=== PATIENT | female | born 1965 | race Hispanic/Latino ===

== ENCOUNTER 2022-07-28 18:49 | Emergency (ER) | payer SELFPAY ==
[~2022-07-28] VITALS: Ht 152.4 cm; Wt 62.5 kg
[2022-07-28] MEDS ORDERED: VENTOLIN HFA IN (21:08)
[2022-07-28] MEDS ORDERED: SINGULAIR10 MG PO (21:08)
[2022-07-28] MEDS ORDERED: PREDNISONE20 MG PO (21:08)
[2022-07-28] MEDS ORDERED: ZYRTEC10 MG PO (21:08)
[2022-07-28 21:26] VITALS: BP 131/81
== END 2022-07-28 22:04 | disposition home or self-care (01) | DRG 203 ==
LOC: ED 18:49
DX: J45.909 Unspecified asthma, uncomplicated (principal); I10 Essential (primary) hypertension; E11.9 Type 2 diabetes mellitus without complications; Z20.822 Contact with and (suspected) exposure to COVID-19

== ENCOUNTER 2023-09-17 12:55 | Emergency (ER) | payer SELFPAY ==
[2023-09-17] VITALS (12 sets, daily range): BP systolic 124–146; BP diastolic 69–82
[~2023-09-17] VITALS: Ht 152.4 cm; Wt 62.1 kg
[~2023-09-17 12:55] MED LIST: PREDNISONE20 MG PO; SINGULAIR10 MG PO; VENTOLIN HFA IN; ZYRTEC10 MG PO
[2023-09-17] MEDS ORDERED: ASPIRIN 81 MG/TAB PO ONE (13:15)
[2023-09-17] MEDS ORDERED: methylPREDNISolone SODIUM SUCC 125 MG/2 ML SDV IV ONE (13:15)
[2023-09-17] MEDS ORDERED: IPRATROPIUM-Albuterol 0.5MG-2.5MG/3 ML NEB ONE (13:15)
[2023-09-17 13:36] LABS: BASO% 0.4 % (0-3); EOS% 5.1 % (0-8); HEMATOCRIT 43.4 % (37.0-47.0); HEMOGLOBIN 14.8 g/dl (12.0-16.0); IMMATURE GRANULOCYTES 0.1 % (0.0-5.0); MEAN CELL VOLUME 83.6 fL CALC (80.0-100.0); MEAN CORPUSCULAR HGB 28.5 pG CALC (26.0-32.0); MEAN CORPUSCULAR HGB CONC 34.1 g/dL CAL (32.0-36.0); MONO% 4.6 % (2-13); NEUT# 5.18 thou/uL (2.00-7.15); NEUT% 53.8 % (42-76); RED BLOOD COUNT 5.19 mill/uL (4.20-5.60); RED CELL DISTRI WIDTH 12.2 % (11.5-15.5)
[2023-09-17 13:52] LABS: ALBUMIN 4.5 g/dL (3.2-5.0); ALKALINE PHOSPHATASE 78 u/l (38-126); ANION GAP 9 (6-22 (CALC)); BILIRUBIN, TOTAL 0.7 mg/dL (0.02-1.3); BUN 17 mg/dL (7-17); BUN/CREATININE RATIO 25 (12-20 (CALC)); CARBON DIOXIDE 23 mmol/l (22-30); CHLORIDE 109 mmol/l (95-108); CREATININE 0.7 mg/dL (0.5-1.0); ESTIMATED GFR 100 ML/MIN (>=90 (CALC)); POTASSIUM 4.2 mmol/l (3.5-5.1); SGOT/AST 78 u/l (14-36); SODIUM 136 mmol/l (137-146); TOTAL PROTEIN 8.2 g/dL (6.3-8.2)
[2023-09-17] MEDS ORDERED: OSELTAMIVIR PHOSPHATE 75 MG/TAB CAP PO ONE (14:00)
[2023-09-17] MEDS ORDERED: PROAIR HFA IN (15:16)
[2023-09-17] MEDS ORDERED: MEDDOSEPAK PO (15:16)
[2023-09-17] MEDS ORDERED: TAM75CAP PO (15:16)
== END 2023-09-17 15:59 | disposition home or self-care (01) | DRG 194 ==
LOC: ED 12:55
PROVIDERS: Family Medicine
DX: J10.1 Influenza due to other identified influenza virus with other respiratory manifestations (principal); J45.901 Unspecified asthma with (acute) exacerbation; R07.89 Other chest pain; I10 Essential (primary) hypertension; E11.9 Type 2 diabetes mellitus without complications; Z20.822 Contact with and (suspected) exposure to COVID-19